=== PATIENT | female | born 1990 | race Caucasian/White ===

== ENCOUNTER 2019-11-16 15:16 | Outpatient (CLI) | payer OTHER ==
[2019-11-21 15:08] LABS: F002 MILK (COW) <0.10 kU/L (Class 0); F004 WHEAT <0.10 kU/L (Class 0); F008 CORN <0.10 kU/L (Class 0); F013 PEANUT <0.10 kU/L (Class 0); F014 SOYBEAN <0.10 kU/L (Class 0); F026 PORK <0.10 kU/L (Class 0); F027 BEEF <0.10 kU/L (Class 0); F052 CHOCOLATE/COCOA <0.10 kU/L (Class 0); FX02 FISH/SHELL MIX Negative (.)
== END 2019-11-16 23:59 | disposition home or self-care (01) ==
LOC: LAB 15:16
PROVIDERS: ATTEND Family Medicine
DX: Z91.018 Allergy to other foods (principal)
CPT/HCPCS: 36415; 86003